=== PATIENT | female | born 1985 | race Hispanic/Latino ===

== ENCOUNTER 2020-04-03 05:16 | Inpatient (IN) | payer BC ==
[~2020-04-03] VITALS: Ht 154.9 cm; Wt 90.3 kg
[2020-04-03] MEDS ORDERED: CEFAZOLIN SODIUM 1 GM VIAL IVP PRN (05:30)
[2020-04-03] MEDS ORDERED: LACTATED RINGERS 1000ML 1,000 ML IV SCH (05:30)
[2020-04-03] MEDS ORDERED: CALDOLOR 800MG+NS 250ML 250 ML IV PRN (05:30)
[2020-04-03 06:07] LABS: HEMATOCRIT 34.3 % (36-48); MEAN CORPUSCULAR HEMOGLOBIN 23.4 pg (27.0-33.0); MEAN CORPUSCULAR HGB CONC 29.2 g/dL (32.0-36.0); MEAN CORPUSCULAR VOLUME 80.1 fL (79-99); NUCLEATED RED BLOOD CELLS 0.3 % (0.0-0.19); PLATELET COUNT (AUTO) 291 K/uL (130-400); RED BLOOD CELL COUNT(AUTO) 4.28 MIL/uL (4.00-5.50); RED CELL DISTRIBUTION WIDTH 27.7 % (11.0-15.5); WHITE BLOOD COUNT (AUTO) 7.9 K/uL (4.8-10.8)
[2020-04-03] MEDS ORDERED: FENTANYL CITRATE PF 50 MCG/1 ML 2ML VIAL ONE (07:24)
[2020-04-03] MEDS ORDERED: ONDANSETRON 4MG INJ ONE (07:24)
[2020-04-03] MEDS ORDERED: MORPHINE PF 100MG/10ML AMP IV ONE (07:24)
[2020-04-03] MEDS ORDERED: CEFAZOLIN SODIUM 1 GM VIAL IVP ONE (08:15)
[2020-04-03] MEDS ORDERED: OXYTOCIN 10 USP UNITS/ML ONE (08:23)
[2020-04-03] MEDS ORDERED: PHENYLEPHRINE HCL 10 MG/ML 1ML VIAL IV ONE (08:40)
[2020-04-03] MEDS ORDERED: EPHEDRINE SULFATE 50 MG/ML AMPULE ONE (08:42)
[2020-04-03] MEDS ORDERED: OXYTOCIN-LR 20 UNITS/1000 ML 1,000 ML IV ONE (09:08)
[2020-04-03] MEDS ORDERED: IBUPROFEN 600 MG TABLET PO PRN (09:15)
[2020-04-03] MEDS ORDERED: MEPERIDINE-PF 75 MG/ML SYG IM PRN (09:15)
[2020-04-03] MEDS ORDERED: PROMETHAZINE HCL 25 MG/ML 1ML AMPULE IM PRN (09:15)
[2020-04-03] MEDS ORDERED: OXYTOCIN-LR 20 UNITS/1000 ML 1,000 ML IV PRN (09:15)
[2020-04-03] MEDS: IBUPROFEN 800 MG TAB PO SCH ×2 (09:15→17:15)
[2020-04-03] MEDS ORDERED: LANOLIN 30GM OINTMENT TP PRN (09:15)
[2020-04-03] MEDS ORDERED: DIPHENHYDRAMINE HCL 25 MG CAPSULE PO PRN (09:15)
[2020-04-03] MEDS ORDERED: ACETAMINOPHEN 500 MG TABLET PO PRN (09:15)
[2020-04-03] MEDS ORDERED: 0.9%NACL 10ML VIAL IVP PRN (09:15)
[2020-04-03] MEDS ORDERED: MEASLES/MUMPS/RUBELLA VACCINE, LIVE 0.5 ML/VIAL SQ SCH (09:15)
[2020-04-03] MEDS ORDERED: DIPH,PERTUSS(ACELL),TET VAC/PF 0.5 ML VIAL IM SCH (09:15)
[2020-04-03] MEDS ORDERED: BISACODYL 10 MG SUPP.RECT RC PRN (09:15)
[2020-04-03] MEDS ORDERED: HYDROCODONE/ACETAMINOPHEN 5/325 MG TAB PO PRN (09:15)
[2020-04-03] MEDS ORDERED: ONDANSETRON 4MG INJ IVP PRN (09:30)
[2020-04-03] MEDS ORDERED: NALOXONE HCL 0.4 MG/1 ML ML IVP PRN (09:30)
[2020-04-03] MEDS ORDERED: EPHEDRINE SULFATE 50 MG/ML AMPULE IVP PRN (09:30)
[2020-04-03] MEDS ORDERED: DiphenhydrAMINE HCL 50 MG/ML VIAL IVP PRN (09:30)
[2020-04-03 11:02] VITALS: BP 111/64
[2020-04-03] MEDS ORDERED: PREN-154 PO (11:15)
[2020-04-03] MEDS ORDERED: FERR-82 PO (11:15)
[2020-04-03] MEDS: SIMETHICONE 80 MG TAB.CHEW PO PRN ×2 (12:57→21:23)
[2020-04-03] MEDS: ACETAMINOPHEN WITH CODEINE 1 TAB TAB PO PRN (12:58)
[2020-04-03 16:53] VITALS: BP 114/69
[2020-04-03] MEDS: DEXTROSE 5 %-0.45 % NACL 1,000 ML IV PRN (17:22)
[2020-04-03] MEDS: CALDOLOR 800MG+NS 250ML 250 ML IV SCH (18:26)
[2020-04-03 20:30] VITALS: BP 123/67
[2020-04-03] MEDS: DOCUSATE SODIUM 100 MG CAP PO SCH (21:23)
[2020-04-03 23:05] VITALS: BP 107/60
[2020-04-04] MEDS: CALDOLOR 800MG+NS 250ML 250 ML IV SCH (01:00)
[2020-04-04] MEDS: DEXTROSE 5 %-0.45 % NACL 1,000 ML IV PRN (01:55)
[2020-04-04 03:06] VITALS: BP 113/68
[2020-04-04] MEDS: ACETAMINOPHEN WITH CODEINE 1 TAB TAB PO PRN ×2 (05:40→12:21)
[2020-04-04 06:12] LABS: HEPATITIS Bs ANTIGEN SCREEN P Negative (Negative)
[2020-04-04 08:00] VITALS: BP 111/63
[2020-04-04] MEDS ORDERED: LIDOCAINE 5% TOPICAL PATCH TP SCH (09:00)
[2020-04-04] MEDS: DOCUSATE SODIUM 100 MG CAP PO SCH (09:09)
[2020-04-04] MEDS: SIMETHICONE 80 MG TAB.CHEW PO PRN ×2 (09:09→13:52)
[2020-04-04] MEDS: IBUPROFEN 800 MG TAB PO SCH (09:16)
[2020-04-04 12:00] VITALS: BP 119/73
== END 2020-04-04 14:05 | disposition home or self-care (01) | DRG 785 ==
LOC: PREOBSVTOIN 05:16 → LDH 05:16 → WSH 11:00
PROVIDERS: ADMIT Obstetrics & Gynecology; ATTEND Obstetrics & Gynecology
PROC: 10D00Z1 Extraction of Products of Conception, Low, Open Approach (ICD-10-PCS; 2020-04-03)
PROC: 0UB70ZZ Excision of Bilateral Fallopian Tubes, Open Approach (ICD-10-PCS; principal; 2020-04-03 08:00)
PROC: 3E0234Z Introduction of Serum, Toxoid and Vaccine into Muscle, Percutaneous Approach (ICD-10-PCS; 2020-04-04)
DX: O34.211 Maternal care for low transverse scar from previous cesarean delivery (principal); Z3A.39 39 weeks gestation of pregnancy; Z37.0 Single live birth; O99.214 Obesity complicating childbirth; E66.9 Obesity, unspecified; Z28.21 Immunization not carried out because of patient refusal; O26.893 Other specified pregnancy related conditions, third trimester; Z67.11 Type A blood, Rh negative; Z30.2 Encounter for sterilization
CPT/HCPCS: 36415; 59510; 83033; 85027; 86592; 86850; 86900; 86901; 87340; A4344; G0378; J0690; J1741; J2274; J2370; J2405; J2590; J2791; J3010; J3490